=== PATIENT | male | born 1990 | race Two or more races ===

== ENCOUNTER 2017-01-04 16:45 | Emergency (ER) | payer BC, OTHER ==
[~2017-01-04] VITALS: Ht 182.9 cm; Wt 83.9 kg
[2017-01-04 16:56] VITALS: BP 158/80
== END 2017-01-04 17:14 | disposition home or self-care (01) ==
LOC: ER 16:47
DX: Z20.6 Contact with and (suspected) exposure to human immunodeficiency virus [HIV] (principal)
CPT/HCPCS: 99283; A4606; Z7610

== ENCOUNTER 2017-04-06 16:04 | Outpatient (CLI) | payer BC, OTHER | END 2017-04-06 23:59 | disposition home or self-care (01) | LOC: LAB 16:04 | PROVIDERS: ATTEND Internal Medicine | DX: T88.7XXA Unspecified adverse effect of drug or medicament, initial encounter (principal); Y92.89 Other specified places as the place of occurrence of the external cause | CPT/HCPCS: 36415; 80074 ==